=== PATIENT | female | born 1950 | race Caucasian/White ===

== ENCOUNTER → 2017-10-22 | Day surgery (SDC) | payer OTHER, MEDICARE ==
[~2017-10-22] VITALS: Ht 165.1 cm; Wt 62.6 kg
[~2017-10-22] MED LIST: ASPIRIN EC81 M1 PO; CALCIUM + VITA1 EAC1 PO; ENALAPRIL MALEAT5 M1 PO; FISH OIL 1,0001 EAC2 PO; VITAMIN B-121000 MC3 PO; VITAMIN D31000 UNI1 PO
--- NOTE | 2017-10-22 10:51 | Operative Report ---
Operative/Inv Procedure Report Surgery Date: 10/22/17 Name of Procedure: Right breast biopsy with wire localization Pre-Operative Diagnosis: Right breast atypical ductal hyperplasia Post-Operative Diagnosis: Same Estimated Blood Loss: scant Surgeon/Spooler Rubber Strand: Valerie Holland MD Anesthesia: local monitored anesthesi Specimens: Right breast biopsy, skin margin, suture chua margin Operative/Procedure Note Note: Patient brought to the operating room on 10/22/2017 after preoperative wire localization was performed and the films were reviewed. Needle biopsy showing atypical ductal hyperplasia. 2 g of Ancef was given and the right breast was prepped and draped in a sterile fashion. There was a prior incision in the extreme upper outer quadrant of the breast. The wire insertion site was just inferior to this incision and the needle biopsy scar was medial to that. The risks incision was used. Local anesthesia 1% lidocaine exception Marcaine was given. The incision was opened and the breast tissue was dissected to the wire. The wire was brought into the wound and tissue was grasped using an Allis clamp. The area was dissected to the needle biopsy site. Tissue was densely adherent to the skin in that region and a scalpel was used to dissect. Remainder the specimen was removed and marked for orientation using margin map. The extreme skin margin demonstrated open hematoma cavity. X-ray failed to show the clip in the specimen. Additional superficial tissue was then shaved off the dermis. This tissue was marked as additional skin margin. A suture was used to ángel the dermis margin. X-ray did show the clip present in the specimen. It was stasis achieved using electrocautery. Deep tissue was proximal made using interrupted Vicryl sutures and skin was closed using a running Biosyn subcuticular stitch. Steri-Strips and sterile dressings were applied and the patient was transferred to the recovery room in satisfactory condition having tolerated the procedure well.
--- NOTE | 2017-10-22 15:32 | MAMMOGRAPHY REPORT ---
PROCEDURE: MM GUIDANCE FOR BREAST PREOPERATIVE NEEDLE LOCALIZATION, RIGHT SPECIMEN RADIOGRAPHY CLINICAL INFORMATION: Biopsy proven right-sided ADH at the upper outer quadrant. Preoperative needle localization is requested. COMPARISON: Prior studies done on 09/19/2017 and 09/05/2017. TECHNIQUE/FINDINGS: The details of the procedure, as well as the risks, benefits, and alternatives to the procedure were explained to the patient in detail and all of her questions were answered, after which, written informed consent was obtained. Prior to the procedure, the previous sonographic-guided tissue marker placement was localized using CC and ML views. A timeout was performed, the lesion intended for needle localization was targeted and the skin of the right breast was then prepped and draped in the usual sterile fashion. Using mammographic guidance, sterile technique and buffered 2% lidocaine without epinephrine for local anesthesia, a 5 cm Kopans needle-wire was placed at the site of the tissue marker at upper outer quadrant of the right breast. The patient tolerated the procedure well. The worksheet was appropriately labeled and was sent to the OR with the patient. Subsequently, following excision of the mass, specimen radiography was performed which revealed intact wire, and the previously placed tissue marker. IMPRESSION: 1. Successful mammographic-guided needle localization of the right breast biopsy-proven ADH at the upper outer quadrant of the right breast. 2. Final specimen radiograph confirming removal of the previously placed tissue marker and intact wire combination. Due to technical difficulties in transmitting the specimen radiograph images from the operating room into the PACS following excision, the findings could not be directly reviewed with Dr. Holland. The histology report is pending.
== END ==
LOC: STS 03:27
DX: N60.91 Unspecified benign mammary dysplasia of right breast (principal); I10 Essential (primary) hypertension; R01.1 Cardiac murmur, unspecified
CPT/HCPCS: J0131; J0690; J2001; J2250; J3490